=== PATIENT | male | born 1980 ===

== ENCOUNTER 2020-06-15 06:26 | Day surgery (SDC) | payer OTHER | END 2020-06-15 10:00 | disposition home or self-care (01) | LOC: AMB-ENDOS 06:26 | PROVIDERS: ATTEND Colon & Rectal Surgery | DX: K62.89 Other specified diseases of anus and rectum (principal); Z12.11 Encounter for screening for malignant neoplasm of colon; Z20.822 Contact with and (suspected) exposure to COVID-19 ==